=== PATIENT | female | born 1975 | race African-American/Black ===

== ENCOUNTER 2017-11-04 08:42 | Emergency (ER) | payer MEDICAID ==
[~2017-11-04] VITALS: Ht 162.6 cm; Wt 84.0 kg
[2017-11-04] MEDS ORDERED: HYDROCODONE/ACETAMINOPHEN 5/325MG TABLET PO ONE (09:30)
[2017-11-04 10:05] LABS: HCG SCREEN NEGATIVE
[2017-11-04 11:39] VITALS: BP 146/76
== END 2017-11-04 11:41 | disposition home or self-care (01) ==
LOC: ER 08:42
DX: S10.83XA Contusion of other specified part of neck, initial encounter (principal); S30.0XXA Contusion of lower back and pelvis, initial encounter; V89.2XXA Person injured in unspecified motor-vehicle accident, traffic, initial encounter; Y93.89 Activity, other specified; Y92.89 Other specified places as the place of occurrence of the external cause; Y99.8 Other external cause status; Z98.890 Other specified postprocedural states
CPT/HCPCS: 72125; 84703; 99285